=== PATIENT | female | born 1995 | race Caucasian/White ===

== ENCOUNTER 2019-08-14 10:54 | Emergency (ER) | payer OTHER ==
[~2019-08-14] VITALS: Ht 172.7 cm; Wt 56.8 kg
[2019-08-14 11:03] VITALS: Ht 172.7 cm; Wt 56.8 kg
[2019-08-14] MEDS ORDERED: PHENERGAN25 M1 PO (11:05)
[2019-08-14] MEDS ORDERED: METOPROLOL TART25 MG PO (11:06)
[2019-08-14 11:22] LABS: BASOPHILS 0.1 % (0-2); EOSINOPHILS 0.2 % (0-7); HEMATOCRIT 37.6 % (36.0-48.0); HEMOGLOBIN 12.9 g/dL (12-16); IMMATURE GRANULOCYTES 0.4 % (0-5); LYMPHOCYTES 24.9 % (15-50); MCHC 34.3 g/dL (31.0-37.0); MCV 93.3 fL (80.0-100.0); MEAN PLATELET VOLUME 9.3 fL (7.4-10.4); MONOCYTES 7.7 % (2-11); NEUTROPHILS 66.7 % (40-80); PLATELET COUNT 396 10x3/uL (130-400); RBC 4.03 10x6/uL (4.00-5.40); RDW 12.9 % (11.5-14.5); WBC 13.7 10x3/uL (4.8-10.8)
[2019-08-14 12:31] LABS: BILIRUBIN NEGATIVE (NEGATIVE); GLUCOSE NEGATIVE (NEGATIVE); KETONE SMALL mg/dL (NEGATIVE); NITRITE NEGATIVE (NEGATIVE); UROBILINOGEN NORMAL (NORMAL)
[2019-08-14 12:32] LABS: BACTERIA MANY /hpf (NEGATIVE); EPITHELIAL CELLS 0-5 /hpf (0-5); RED CELLS - URINE OCC /hpf (0-5); WHITE CELLS - URINE 0-5 /hpf (NEGATIVE)
[2019-08-14 12:34] LABS: CALC OSMOLALITY 269 mosm/kg (275-300); CALCIUM 9.3 mg/dL (8.5-10.1); CARBON DIOXIDE 25.2 mmol/L (21.0-32.0); CHLORIDE - SERUM 100 mmol/L (98-107); CREATININE - SERUM 0.5 mg/dL (0.6-1.3); GLUCOSE 93 mg/dL (74-106); POTASSIUM - SERUM 3.5 mmol/L (3.5-5.1); SODIUM 136 mmol/L (136-145); UREA NITROGEN 8 mg/dL (7-18); eGFR NON AFRICAN AMERICAN > 90 mL/min (90-120)
[2019-08-14 12:41] LABS: ALBUMIN 3.6 g/dL (3.4-5.0); ALKALINE PHOSPHATASE 60 U/L (30-120); ALT (SGPT) 18 U/L (10-68); BILIRUBIN - TOTAL 0.82 mg/dL (0.2-1.3); PROTEIN - SERUM 7.4 g/dL (6.4-8.2)
[2019-08-14] MEDS ORDERED: PHENERGAN25 MG RC (12:45)
[2019-08-14] MEDS ORDERED: MACROBID100 MG PO (12:46)
[2019-08-14 13:25] VITALS: BP 139/75
== END 2019-08-14 13:29 | disposition home or self-care (01) ==
LOC: D.ER 10:54
PROVIDERS: Family Medicine
DX: O21.0 Mild hyperemesis gravidarum (principal); R82.71 Bacteriuria; Z3A.11 11 weeks gestation of pregnancy

== ENCOUNTER → 2019-10-21 11:59 | Outpatient (CLI) | payer OTHER ==
[2019-08-14 11:03] VITALS: BMI 19.0
[~2019-10-21 11:59] MED LIST: MACROBID100 MG PO; METOPROLOL TART25 MG PO; PHENERGAN25 M1 PO; PHENERGAN25 MG RC
== END | disposition home or self-care (01) ==
LOC: D.US 11:59
PROVIDERS: ATTEND Internal Medicine Rheumatology
DX: O09.90 Supervision of high risk pregnancy, unspecified, unspecified trimester (principal); Z3A.00 Weeks of gestation of pregnancy not specified

== ENCOUNTER → 2019-11-18 13:20 | Outpatient (CLI) | payer OTHER ==
[2019-08-14 11:03] VITALS: BMI 19.0
== END | disposition home or self-care (01) ==
LOC: D.US 12:45
PROVIDERS: ATTEND Obstetrics & Gynecology Gynecology
DX: Z87.730 Personal history of (corrected) cleft lip and palate (principal)

== ENCOUNTER 2020-01-12 18:54 | Outpatient (CLI) | payer OTHER ==
[2019-08-14 11:03] VITALS: Ht 172.7 cm; Wt 90.9 kg
[~2020-01-12] VITALS: Ht 172.7 cm; Wt 90.9 kg
[2020-01-12 19:12] VITALS: BP 140/73
[2020-01-12] MEDS ORDERED: REMERON15 MG PO (19:15)
[2020-01-12 19:57] LABS: BASOPHILS 0.2 % (0-2); EOSINOPHILS 0.2 % (0-7); HEMATOCRIT 37.7 % (36.0-48.0); HEMOGLOBIN 12.3 g/dL (12-16); IMMATURE GRANULOCYTES 1.9 % (0-5); MCH 30.4 pg (26.0-34.0); MCHC 32.6 g/dL (31.0-37.0); MCV 93.1 fL (80.0-100.0); MEAN PLATELET VOLUME 8.8 fL (7.4-10.4); NEUTROPHILS 83.7 % (40-80); PLATELET COUNT 384 10x3/uL (130-400); RBC 4.05 10x6/uL (4.00-5.40); RDW 13.7 % (11.5-14.5)
--- NOTE | 2020-01-12 19:59 | NUR ---
PT 33 WEEKS IUP, TAKEN TO L&D, NOT SEEN IN THE ED AT THIS TIME, ESCORTED BY HER FRIEND, TAKEN VIA W/C PER RN.
[2020-01-12 20:08] LABS: BILIRUBIN NEGATIVE (NEGATIVE); KETONE LARGE mg/dL (NEGATIVE); NITRITE NEGATIVE (NEGATIVE); UROBILINOGEN NORMAL mg/dL (< 2)
[2020-01-12 20:09] LABS: BACTERIA MANY HPF (NONE SEEN); HCG SERUM POSITIVE (NEGATIVE)
[2020-01-12 20:12] LABS: CALC OSMOLALITY 270 mosm/kg (275-300); CALCIUM 9.3 mg/dL (8.5-10.1); CARBON DIOXIDE 23.5 mmol/L (21.0-32.0); CHLORIDE - SERUM 100 mmol/L (98-107); CREATININE - SERUM 0.5 mg/dL (0.6-1.3); GLUCOSE 115 mg/dL (74-106); POTASSIUM - SERUM 3.8 mmol/L (3.5-5.1); SODIUM 136 mmol/L (136-145); UREA NITROGEN 7 mg/dL (7-18); eGFR NON AFRICAN AMERICAN > 90 mL/min (90-120)
[2020-01-12 20:17] LABS: ALBUMIN 3.1 g/dL (3.4-5.0); ALKALINE PHOSPHATASE 135 U/L (30-120); ALT (SGPT) 14 U/L (10-68); PROTEIN - SERUM 7.3 g/dL (6.4-8.2)
[2020-01-12 21:15] LABS: UDS - AMPHET NEGATIVE QUAL (NEGATIVE); UDS - BARB NEGATIVE QUAL (NEGATIVE); UDS - BENZO NEGATIVE QUAL (NEGATIVE); UDS - COCAINE NEGATIVE QUAL (NEGATIVE); UDS - OPIATE NEGATIVE QUAL (NEGATIVE); UDS - PCP NEGATIVE QUAL (NEGATIVE); UDS - THC POSITIVE QUAL (NEGATIVE)
[2020-01-12 22:20] LABS: BILIRUBIN NEGATIVE (NEGATIVE); KETONE LARGE mg/dL (NEGATIVE); NITRITE NEGATIVE (NEGATIVE); UROBILINOGEN NORMAL mg/dL (< 2)
[2020-01-12 23:46] LABS: BILIRUBIN NEGATIVE (NEGATIVE); KETONE MODERATE mg/dL (NEGATIVE); NITRITE NEGATIVE (NEGATIVE); UROBILINOGEN NORMAL mg/dL (< 2)
[2020-01-12 23:48] LABS: BACTERIA FEW HPF (NONE SEEN); EPITHELIAL CELLS 0-5 /hpf (0-5); WHITE CELLS - URINE 0-5 HPF (0-4)
[2020-01-13 02:39] LABS: BILIRUBIN NEGATIVE (NEGATIVE); KETONE SMALL mg/dL (NEGATIVE); NITRITE NEGATIVE (NEGATIVE); UROBILINOGEN NORMAL mg/dL (< 2)
[2020-01-13 02:41] LABS: BACTERIA MODERATE HPF (NONE SEEN); EPITHELIAL CELLS 0-5 /hpf (0-5); WHITE CELLS - URINE 0-5 HPF (0-4)
== END 2020-01-13 03:06 | disposition home or self-care (01) | DRG 833 ==
LOC: D.LDO 18:54 → D.ER 18:54 → EDSTATUS 19:41 → D.LDO 22:23 → D.LD 22:23 → D.LDO 01-13 03:06 → D.LD 01-13 03:06
PROVIDERS: Family Medicine; ATTEND Obstetrics & Gynecology
DX: O21.2 Late vomiting of pregnancy (principal); Z3A.33 33 weeks gestation of pregnancy